=== PATIENT | female | born 2000 | race Hispanic/Latino ===

== ENCOUNTER 2019-05-09 18:56 | Emergency (ER) | payer OTHER ==
[~2019-05-09] VITALS: Ht 160 cm; Wt 57.2 kg
--- OUTSIDE RECORDS SUMMARY | 2019-05-09 18:58 | XMS REPORT ---
Author Author Admin, Hend[place] Organization [facility] Address [address] [place] [address] Phone [phone] Allergies, Adverse Reactions, Alerts Allergy Name Reaction Description Start Date Severity Status Provider No Known Allergies Radhajaskaran Nicoleados CMA OR LPN Conditions or Problems Problem Name Problem Code Onset Date Status Entry Date Provider Comment Standard Description Annotate Epigastric pain 789.06 Active Nirav Quigley MD Abdominal pain, epigastric Dry skin 701.1 Active Nirav Quigley MD Keratoderma, acquired Annual exam V70.0 Active Nirav Quigley MD Routine general medical examination at a health care facility DEPRESSIVE DISORDER, MAJOR, RECURRENT EPISODE, MODERATE Active Jorge Sanchez MD Major depressive disorder, recurrent episode, moderate degree ANXIETY DISORDER, UNSPECIFIED Active More Palomino LPC Anxiety state, unspecified DEPRESSIVE DISORDER, UNSPECIFIED Active More Palomino [employer] Cough ICD-786.2 Inactive Nirav Quigley MD Cough 786.2 Resolved Nirav Quigley MD Cough Medication List Medication Instructions Start Date Stop Date Generic Name NDC Status Provider Patient Instruction VENLAFAXINE HCL ER 75 MG CAP TAKE 1 CAPSULE BY MOUTH EVERY DAY IN THE MORNING VENLAFAXINE HCL 75192719712 Active Jorge Sanchez MD Active ZOLOFT 100 MG ORAL TABLET Take 2 tabs By Mouth Every Morning ZOLOFT 100 MG ORAL TABLET 884195 SERTRALINE HCL Inactive ZOLOFT 100 MG ORAL TABLET Take 2 tabs By Mouth Every Morning SERTRALINE HCL 36416088508 No Longer Active Jorge Sanchez MD Active Vital Signs Date Name Value Unit Range Description blood pressure, diastolic 74 mm[Hg] BP silva blood pressure, systolic 106 mm[Hg] BP sys height E&M 59.5 [in_us] Bdy height pulse rate E&M 81 /min Heart rate respiratory rate E&M 17 /min Resp rate temperature E&M 98.0 [degF] Body temperature weight E&M 149.50 [lb_av] Weight Measured blood pressure, diastolic 78 mm[Hg] BP silva blood pressure, systolic 110 mm[Hg] BP sys height E&M 59.5 [in_us] Bdy height pulse rate E&M 120 /min Heart rate respiratory rate E&M 17 /min Resp rate temperature E&M 98.1 [degF] Body temperature weight E&M 152 [lb_av] Weight Measured blood pressure, diastolic 73 mm[Hg] BP silva blood pressure, systolic 107 mm[Hg] BP sys height E&M 59.5 [in_us] Bdy height pulse rate E&M 78 /min Heart rate weight E&M 152.38 [lb_av] Weight Measured blood pressure, diastolic 73 mm[Hg] BP silva blood pressure, systolic 113 mm[Hg] BP sys height E&M 59.5 [in_us] Bdy height pulse rate E&M 78 /min Heart rate weight E&M 154.38 [lb_av] Weight Measured blood pressure, diastolic 64 mm[Hg] BP silva blood pressure, systolic 100 mm[Hg] BP sys height E&M 59.5 [in_us] Bdy height pulse rate E&M 107 /min Heart rate respiratory rate E&M 18 /min Resp rate temperature E&M 98.0 [degF] Body temperature weight E&M 153.38 [lb_av] Weight Measured Diagnostic Results Date Name Value Unit Range Description Lab Report: CBC With Differential/Platelet, Comp. Metabolic Panel (14), ... - Hematology hematocrit, blood 38.3 % 34.0-46.6 Lab Report: CBC With Differential/Platelet, Comp. Metabolic Panel (14), ... - Chemistry sodium, serum 141 mmol/L 134-144 Lab Report: CBC With Differential/Platelet, Comp. Metabolic Panel (14), ... - Hematology neutrophils as percent of blood leukocytes 58 % Not Estab. basophils as percent of blood leukocytes 0 % Not Estab. Lab Report: CBC With Differential/Platelet, Comp. Metabolic Panel (14), ... - Chemistry very low density lipoproteins 33 mg/dL 5-40 carbon dioxide, venous blood 25 mmol/L 20-29 chloride, serum 102 mmol/L 96-106 triglyceride, serum, fasting 164 mg/dL 0-89 calcium, serum 9.5 mg/dL 8.7-10.2 urea nitrogen, blood 7 mg/dL 6-20 alanine aminotransferase (SGPT), serum 10 U/L 0-32 Lab Report: CBC With Differential/Platelet, Comp. Metabolic Panel (14), ... - Hematology mean corpuscular hemoglobin, RBC 30.5 pg 26.6-33.0 mean corpuscular hemoglobin concentration, RBC 33.2 G/DL % 31.5-35.7 Lab Report: CBC With Differential/Platelet, Comp. Metabolic Panel (14), ... - Chemistry protein, total, serum 7.2 g/dL 6.0-8.5 alkaline phosphatase, serum 83 U/L 43-101 Lab Report: CBC With Differential/Platelet, Comp. Metabolic Panel (14), ... - Hematology erythrocyte (RBC) count 4.16 X10E6/UL 10*6/mm3 3.77-5.28 hemoglobin, blood 12.7 g/dL 11.1-15.9 Lab Report: CBC With Differential/Platelet, Comp. Metabolic Panel (14), ... - Chemistry Absolute Neutrophils 5.0 X10E3/UL 10*3/uL 1.4-7.0 LDL cholesterol, serum 124 mg/dL 0-109 urea nitrogen/creatinine ratio, serum 16 9-23 Lab Report: CBC With Differential/Platelet, Comp. Metabolic Panel (14), ... - Hematology lymphocytes as percent of blood leukocytes 33 % Not Estab. mean corpuscular volume, RBC 92 fL 79-97 Lab Report: CBC With Differential/Platelet, Comp. Metabolic Panel (14), ... - Chemistry HDL cholesterol, serum 40 mg/dL >39 Lab Report: CBC With Differential/Platelet, Comp. Metabolic Panel (14), ... - Genetics/fertility eGFR if 172 mL/min/1.73m2 >59 Lab Report: CBC With Differential/Platelet, Comp. Metabolic Panel (14), ... - Hematology basophil count, absolute 0.0 x10E3/uL 0.0-0.2 monocytes as percent of blood leukocytes 8 % Not Estab. Lab Report: CBC With Differential/Platelet, Comp. Metabolic Panel (14), ... - Chemistry globulin, serum 2.6 1.5-4.5 albumin/globulin ratio, serum 1.8 1.2-2.2 Estimated Glomerular Filtration Rate (calc) 149 mL/min/1.73m2 >59 creatinine, serum 0.43 mg/dL 0.57-1.00 cholesterol, serum 197 mg/dL 685-042 9437/08/14 bilirubin, serum, total <0.2 mg/dL mg/dL 0.0-1.2 Lab Report: CBC With Differential/Platelet, Comp. Metabolic Panel (14), ... - Hematology Eosinophil Absolute Count 0.1 X10E3/UL 10*3/uL 0.0-0.4 eosinophils as percent of blood leukocytes 1 % Not Estab. Lab Report: CBC With Differential/Platelet, Comp. Metabolic Panel (14), ... - Chemistry blood glucose, random 112 mg/dL 65-99 aspartate aminotransferase (SGOT), serum 11 U/L 0-40 Lab Report: CBC With Differential/Platelet, Comp. Metabolic Panel (14), ... - Hematology red blood cell distribution width 13.3 % 12.3-15.4 leukocyte count, blood 8.6 X10E3/UL 10*3/mm3 3.4-10.8 Lab Report: CBC With Differential/Platelet, Comp. Metabolic Panel (14), ... - Chemistry potassium, serum 4.0 mmol/L 3.5-5.2 Lab Report: CBC With Differential/Platelet, Comp. Metabolic Panel (14), ... - Hematology monocyte count, blood, automated 0.7 X10E3/UL 10*3/uL 0.1-0.9 Lab Report: CBC With Differential/Platelet, Comp. Metabolic Panel (14), ... - Chemistry albumin, serum 4.6 g/dL 3.5-5.5 immature granulocytes, percentage of total cells, blood 0 % Not Estab. Lab Report: CBC With Differential/Platelet, Comp. Metabolic Panel (14), ... - Hematology platelet count 287 X10E3/UL 10*3/mm3 730-211 0679/08/14 lymphocyte count, blood, automated 2.8 X10E3/UL 10*3/mm3 0.7-3.1 Encounters Date Encounter Provider Code Facility 14:05:34 CDT Est Patient Exp Problem - 67025 Nirav Quigley MD CPT-[id number] [facility] 14:32:38 CDT Est Patient Exp Problem - 83390 Nirav Quigley MD CPT-80983 [facility] 14:44:33 CDT Est Patient Exp Problem - 83561 Jorge Sanchez MD CPT-65035 [facility] 13:08:26 [employer] Est Patient Detailed - 10558 Jorge Sanchez MD CPT-41615 [facility] 12:26:10 [employer] Est Patient Exp Problem - 97674 Nirav Quigley MD CPT-29376 [facility] 17:58:56 CDT Est Patient Detailed - 18774 Jorge Sanchez MD CPT-00609 [facility] Procedures Code Procedure Name Date Entry Date Standard Description CPT-18421 Psychotherapy 45 (38-52*) min - 73800 (with patient and/or family member) 11:16:47 [employer] CPT-94141 Psychotherapy 45 (38-52*) min - 03672 (with patient and/or family member) 22:29:44 CDT CPT-00102 Psychotherapy 30 (16-37*) min - 13127 (with patient and/or family member) 22:34:32 CDT CPT-12955 Psychotherapy 45 (38-52*) min - 80297 (with patient and/or family member) 07:52:57 CDT CPT-12348 Est Patient Well Exam (18 - 39 Yrs) - 24788 14:21:12 CDT CPT-35427 Psychotherapy 45 (38-52*) min - 64737 (with patient and/or family member) 07:54:25 CDT CPT-10655 Psychotherapy 45 (38-52*) min - 29011 (with patient and/or family member) 15:31:09 CDT CPT-71552 Diagnostic evaluation with medical - 33849 13:04:44 CDT CPT-34851 Diagnostic evaluation (no medical) - 31075 19:56:57 CDT
--- OUTSIDE RECORDS SUMMARY | 2019-05-09 18:59 | XMS REPORT ---
Author Author Admin, [place] Organization Unknown Address Unknown Phone Unavailable PROBLEMS Condition Status Date Provider Notes Epigastric pain active Nirav Quigley Cough completed - Nirav Quigley Dry skin active Nirav Quigley Annual exam active Nirav Quigley DEPRESSIVE DISORDER, MAJOR, RECURRENT EPISODE, MODERATE active Jorge Sanchez DEPRESSIVE DISORDER, UNSPECIFIED active Morekathi Palomino ANXIETY DISORDER, UNSPECIFIED active More Palomino ENCOUNTERS Date Type Provider Location Encounter Diagnosis - Ambulatory Encounter More Palomino [facility] UNK - [facility] - [facility] Jorge Sanchez [facility] UNK - [facility] - [facility] Encounter Nirav Quigley [facility] UNK - Ambulatory Encounter Nirav Aguilera [facility] UNK - Ambulatory Encounter Nirav Quigley [facility] UNK - Ambulatory Encounter Nirav Quigley [facility] UNK - Ambulatory Encounter [facility] Cough[facility] - Ambulatory Encounter Jorge Daniel Patel [place] [facility] UNK - Ambulatory Encounter Jorge [place] Acchanda Cornelius [facility] UNK - Ambulatory Encounter Jorge [place] Sanchez [facility] UNK - Ambulatory Encounter Deja Cornelius [facility] UNK - Ambulatory Encounter Jorge Sanchez [facility] UNK - Ambulatory Encounter MoreEmperatriz Palomino [facility] UNK - Ambulatory Encounter Jorge Sanchez [facility] UNK - Ambulatory Encounter Jorge Daniel Short Adryan [facility] UNK - Ambulatory Encounter More Candelario Morekathi Palomino [facility] UNK - Ambulatory Encounter Jorge [place] Patel [place] [facility] UNK - Ambulatory [facility] - [facility] Encounter Nirav Gutierrez Aguilera [facility] Dry skinCough - Ambulatory Encounter Jorge [place] Sanchez [facility] UNK - Ambulatory Encounter More Candelario Morekatie Palomino [facility] UNK - Ambulatory Encounter Brenda [facility] - [facility]ulatory Encounter More Candelario More Candelario [facility] UNK - Ambulatory Encounter Brenda Nicoleados Jazmin Locke [facility] UNK - Ambulatory Encounter More Candelario Morekathi Palomino [facility] UNK - Ambulatory Encounter Nirav Quigley [facility] UNK - Ambulatory Encounter Nirav PersonLogpaul Gutierrez Aguilera [facility] UNK - Ambulatory Encounter Nirav Quigley [facility] UNK - Ambulatory Encounter Nirav Gutierrez Aguilera [facility] Annual exam - Ambulatory Encounter Jorge Sanchez [facility] UNK - Ambulatory Encounter Jorge Sanchez [facility] UNK - Ambulatory Encounter Jorge Benedict Curtis [facility] UNK - Ambulatory Encounter Antonia Grewal [facility] UNK - Ambulatory Encounter More Candelario Morekathi Palomino [facility] UNK - Ambulatory Encounter Jorge Chavis [facility] UNK - Ambulatory Encounter More Candelario More Candelario [facility] UNK - Ambulatory Encounter Jorge Sanchez [facility] UNK - Ambulatory Encounter Jorge Curtis [facility] DEPRESSIVE DISORDER, MAJOR, RECURRENT EPISODE, MODERATE - Ambulatory Encounter More Candelario Morekathi Hernandezen [facility] ANXIETY DISORDER, UNSPECIFIEDDEPRESSIVE DISORDER, UNSPECIFIED - Ambulatory Encounter Antonia Grewal [facility] Contact Center UNK VITAL SIGNS No Information Available Allergies No Known Allergy Information REASON FOR REFERRAL No Information Available RESULTS Date Observation Value Provider Reference Range Interpretation Location LDL cholesterol, serum 124 mg/dL [facility] 0-109 High " very low density lipoproteins 33 mg/dL [facility] 5-40 " HDL cholesterol, serum 40 mg/dL [facility] >39 " triglyceride, serum, fasting 164 mg/dL [facility] 0-89 High " cholesterol, serum 197 mg/dL [facility] 100-169 High " alanine aminotransferase (SGPT), serum 10 1/L [facility] 0-32 " aspartate aminotransferase (SGOT), serum 11 1/L [facility] 0-40 " alkaline phosphatase, serum 83 1/L [facility] 43-101 " bilirubin, serum, total <0.2 mg/dL [facility] 0.0-1.2 " albumin/globulin ratio, serum 1.8 [facility] 1.2-2.2 " globulin, serum 2.6 [facility] 1.5-4.5 " albumin, serum 4.6 g/dL [facility] 3.5-5.5 " protein, total, serum 7.2 g/dL [facility] 6.0-8.5 " calcium, serum 9.5 mg/dL [facility] 8.7-10.2 " carbon dioxide, venous blood 25 mmol/L [facility] 20-29 " chloride, serum 102 mmol/L [facility] 96-106 " potassium, serum 4.0 mmol/L [facility] 3.5-5.2 " sodium, serum 141 mmol/L [facility] 134-144 " urea nitrogen/creatinine ratio, serum 16 [facility] 9-23 " eGFR if 172 mL/min/((173/100).m2) [facility] >59 " Estimated Glomerular Filtration Rate (calc) 149 mL/min/((173/100).m2) [facility] >59 " creatinine, serum 0.43 mg/dL [facility] 0.57-1.00 Low " urea nitrogen, blood 7 mg/dL [facility] 6-20 " blood glucose, random 112 mg/dL [facility] 65-99 High " immature granulocytes, percentage of total cells, blood 0 % [facility] Not Estab. " basophil count, absolute 0.0 x10E3/uL [facility] 0.0-0.2 " Eosinophil Absolute Count 0.1 X10E3/UL [facility] 0.0-0.4 " monocyte count, blood, automated 0.7 X10E3/UL [facility] 0.1-0.9 " lymphocyte count, blood, automated 2.8 X10E3/UL [facility] 0.7-3.1 " Absolute Neutrophils 5.0 X10E3/UL [facility] 1.4-7.0 " basophils as percent of blood leukocytes 0 % [facility] Not Estab. " eosinophils as percent of blood leukocytes 1 % [facility] Not Estab. " monocytes as percent of blood leukocytes 8 % [facility] Not Estab. " lymphocytes as percent of blood leukocytes 33 % [facility] Not Estab. " neutrophils as percent of blood leukocytes 58 % [facility] Not Estab. " platelet count 287 X10E3/UL [facility] 150-379 " red blood cell distribution width 13.3 % [facility] 12.3-15.4 " mean corpuscular hemoglobin concentration, RBC 33.2 G/DL [facility] 31.5-35.7 " mean corpuscular hemoglobin, RBC 30.5 pg [facility] 26.6-33.0 " mean corpuscular volume, RBC 92 fL [facility] 79-97 " hematocrit, blood 38.3 % [facility] 34.0-46.6 " hemoglobin, blood 12.7 g/dL [facility] 11.1-15.9 " erythrocyte (RBC) count 4.16 X10E6/UL [facility] 3.77-5.28 " leukocyte count, blood 8.6 X10E3/UL [facility] 3.4-10.8 HISTORY OF IMMUNIZATIONS No Information Available HISTORY OF MEDICATION USE Medication Instructions Dates Provider Comments VENLAFAXINE HCL ER 75 MG CAP TAKE 1 CAPSULE BY MOUTH EVERY DAY IN THE MORNING Jorge Sanchez ZOLOFT 100 MG ORAL TABLET Take 2 tabs By Mouth Every Morning - Jorge Sanchez SOCIAL HISTORY Date Observation Value Provider drug use, illicit Never Deborath Aguilera " alcohol use Never Deborath Aguilera " social history E&M Ps are together City: [place] . B (21), F, M GM, who is disabled , and M in the house home schooled; 12th grade - graduated - [employer] Deborath Aguilera " social history reviewed E&M reviewed today Deborath Aguilera " is there any chance that you could be ? No Deborath Aguilera " assessment of health literacy ([facility] 2014 Standards, 3C10) Adequate Deborath Aguilera " passive cigarette smoke exposure No Deborath Aguilera " smoking status never smoker Deborath Aguilera " Exercise Program Referral T Deborath Aguilera " Weight Management Counseling Provided T Deborath Aguilera " Nutrition intervention T Deborath Aguilera Exercise Program Referral T Deborath Aguilera " Weight Management Counseling Provided T Deborath Aguilera " Nutrition intervention T Deborath Aguilera " drug use, illicit Never Deborath Aguilera " alcohol use Never Deborath Aguilera " social history E&M Ps are together City: [place] . B (21), F, M GM, who is disabled , and M in the house home schooled; 12th grade - graduated - [employer] Deborath Aguilera " social history reviewed E&M reviewed today Deborath Aguilera " assessment of health literacy ([facility] 2014 Standards, 3C10) Adequate Deborath Aguilera " is there any chance that you could be ? No Deborath Aguilera " passive cigarette smoke exposure No Deborath Aguilera " smoking status never smoker Radhaorath Aguilera smoking status never smoker Jorge Sanchez smoking status never smoker Jorge Sanchez " Suicide Addendum Question 11, unusual risks No Jorge Sanchez " Suicide Addendum Question 10, use of alcohol or non-prescription drugs No Jorge Sanchez " Suicide Addendum Question 8, people who care Yes Jorge Sanchez " Suicide Addendum Question 6, intend to act No Jorge Sanchez " Suicide Addendum Question 4, plan for suicide No Jorge Sanchez " Suicide Addendum Question 3, try to resolve or see other solution Yes Jorge Sanchez " Suicide Addendum Question 2, feeling hopeless Yes Jorge Sanchez " Suicide Addendum Question 1, thoughts of harming yourself Yes Jorge Sanchez Exercise Program Referral T Radhajaskaran Aguilera " Weight Management Counseling Provided T Radhajermaine Aguilera " Nutrition intervention T Deborath Aguilera " drug use, illicit Never Deborath Aguilera " alcohol use Never Deborath Aguilera " social history E&M Ps are together City: [place] . B (21), F, M GM, who is disabled , and M in the house home schooled; 12th grade - graduated - [employer] Debjermaineth Aguilera " social history reviewed E&M reviewed today Deborath Aguilera " assessment of health literacy ([facility] 2014 Standards, 3C10) Adequate Deborath Aguilera " passive cigarette smoke exposure No Deborath Aguilera " smoking status never smoker Deborath Aguilera is there any chance that you could be ? No Deborath Aguilera " passive cigarette smoke exposure No Deborath Aguilera " assessment of health literacy ([facility] 2014 Standards, 3C10) Adequate Deborath Aguilera " smoking status never smoker Deborath Aguilera " drug use, illicit Never Deborath Aguilera " alcohol use Never Deborath Aguilera " social history E&M Ps are together City: [place] . B (21), F, M GM, who is disabled , and M in the house home schooled; 12th grade - graduated - [employer] Lilyricky Aguilera " social history reviewed E&M reviewed today Deborath Aguilera " smoking status never smoker Jorge Craveno " social history E&M Ps are together City: [place] . B (21), F, M GM, who is disabled , and M in the house home schooled; 12th grade - graduated - [employer] Jorge Sanchez " social history reviewed E&M reviewed today Jorge Sanchez drug use, illicit Never Jorge Craveno " alcohol use Never Jorge Berno " smoking status never smoker Jorge Berno " social history reviewed E&M reviewed today Jorge Berno " social history E&M Ps are together City: [place] . B (21), F, M GM, who is disabled , and M in the house home schooled; 12th grade - graduated - [employer] Jorge Sanchez " home/family situation, assessment B (21), F, M GM, who is disabled , and M in the house Jorge Sanchez social history reviewed E&M reviewed today More Palomino " social history E&M Ps are together City: [place] . B (), F, GM, and M in the house home schooled; 12th grade More Palomino " family support Ps are together More Palomino " home/family situation, assessment B (21), F, GM, and M in the house More Candelario FUNCTIONAL STATUS No Information Available MENTAL STATUS Date Observation Value Provider mental status assessment, judgment fair More Candelario " insight (mental status exam) fair, limited More Candelario " Mental Status Exam: intelligence oriented to person, oriented to place, oriented to time, oriented to reality, not sure of the date More Candelario " hallucinations none More Candelario " thought content (mental status exam) (E&M) lucid More Candelario " mental status assessment, process goal-directed, logical More Candelario " mental status assessment, sensorium alert, clear More Candelario " affect (mental status exam) brighter affect , congruent More Candelario " mood (mental status exam) pleasant More Candelario " mental status assessment, speech activity normal flow, normal pace, normal pressure, normal rate, normal tone, normal volume, spontaneous More Candelario " mental status assessment, motor activity normal gait, normal posture, fidgety More Candelario " behavior (mental status exam) appropriate, cooperative, responsive, eye contact varied - looks up at drawing More Candelario " mental appearance (mental status exam) adequate hygiene, appropriate dress More Candelario assessment of judgment and insight E&M intact Nirav Quigley " mental status examination: orientation E&M oriented to time, place, and person Nirav Quigley " assessment of mood and affect E&M no depression, anxiety, or agitation Nirav Quigley " Generalized Anxiety Disorder Questionnaire - Question 2 0 Willy " Generalized Anxiety Disorder Questionnaire - Question 1 0 Brenda Aguilera assessment of mood and affect E&M no depression, anxiety, or agitation Nirav Quigley " assessment of judgment and insight E&M intact Nirav Quigley " mental status examination: orientation E&M oriented to time, place, and person Nirav Quigley " Generalized Anxiety Disorder Questionnaire - Question 2 0 jermaine Willy " Generalized Anxiety Disorder Questionnaire - Question 1 0 Brenda Aguilera mental status assessment, judgment fair Jorge Berno " insight (mental status exam) fair Jorge Berno " Mental Status Exam: intelligence oriented to person, oriented to place, oriented to time, oriented to reality Jorge Berno " hallucinations none Jorge Berno " thought content (mental status exam) (E&M) lucid Jorge Berno " mental status assessment, process goal-directed, logical Jorge Berno " mental status assessment, sensorium alert, clear Jorge Berno " affect (mental status exam) congruent, constricted Jorge Berno " mental status assessment, speech activity normal flow, normal pace, normal pressure, normal rate, normal tone, normal volume, spontaneous Jorge Berno " mental status assessment, motor activity normal gait, normal posture, fidgety Jorge Berno " behavior (mental status exam) appropriate, cooperative, responsive Jorge Berno " mental appearance (mental status exam) adequate hygiene, appropriate dress Jorge Sanchez mental status assessment, judgment fair Jorge Berno " insight (mental status exam) fair Jorge Berno " Mental Status Exam: intelligence oriented to person, oriented to place, oriented to time, oriented to reality Jorge Berno " hallucinations none Jorge Berno " thought content (mental status exam) (E&M) lucid Jorge Berno " mental status assessment, process goal-directed, logical Jorge Berno " mental status assessment, sensorium alert, clear Jorge Berno " affect (mental status exam) congruent, constricted Jorge Berno " mental status assessment, speech activity normal flow, normal pace, normal pressure, normal rate, normal tone, normal volume, spontaneous Jorge Berno " mental status assessment, motor activity normal gait, normal posture, fidgety Jorge Berno " behavior (mental status exam) appropriate, cooperative, responsive Jorge Berno " mental appearance (mental status exam) adequate hygiene, appropriate dress Jorge Sanchez mental status assessment, judgment fair More Candelario " insight (mental status exam) fair More Candelario " Mental Status Exam: intelligence oriented to person, oriented to place, oriented to time, oriented to reality More Candelario " hallucinations none More Candelario " thought content (mental status exam) (E&M) lucid More Candelario " mental status assessment, process goal-directed, logical More Candelario " mental status assessment, sensorium alert, clear More Candelario " affect (mental status exam) congruent, constricted More Candelario " mood (mental status exam) depressed, frustrated More Candelario " mental status assessment, speech activity normal flow, normal pace, normal pressure, normal rate, normal tone, normal volume, spontaneous More Candelario " mental status assessment, motor activity normal gait, normal posture More Candelario " behavior (mental status exam) appropriate, cooperative, responsive More Candelario " mental appearance (mental status exam) adequate hygiene, appropriate dress More Candelario assessment of judgment and insight E&M intact Nirav Quigley " mental status examination: orientation E&M oriented to time, place, and person Nirav Quigley " assessment of mood and affect E&M no depression, anxiety, or agitation Nirav Quigley mental status assessment, judgment fair More Candelario " insight (mental status exam) fair More Candelario " Mental Status Exam: intelligence oriented to person, oriented to place, oriented to time, oriented to reality More Candelario " hallucinations none More Candelario " thought content (mental status exam) (E&M) lucid More Candelario " mental status assessment, process goal-directed, logical More Candelario " mental status assessment, sensorium alert, clear More Candelario " affect (mental status exam) congruent, constricted More Candelario " mood (mental status exam) frustrated More Candelario " mental status assessment, speech activity normal flow, normal pace, normal pressure, normal rate, normal tone, normal volume, spontaneous More Candelario " mental status assessment, motor activity normal gait, normal posture More Candelario " behavior (mental status exam) appropriate, cooperative, responsive More Candelario " mental appearance (mental status exam) adequate hygiene, appropriate dress More Candelario mental status assessment, judgment fair More Candelario " insight (mental status exam) fair More Candelario " Mental Status Exam: intelligence oriented to person, oriented to place, oriented to time, oriented to reality More Candelario " hallucinations none More Candelario " thought content (mental status exam) (E&M) lucid More Candelario " mental status assessment, process goal-directed, logical More Candelario " mental status assessment, sensorium alert, clear More Candelario " affect (mental status exam) congruent, constricted More Candelario " mood (mental status exam) anxious, pleasant More Candelario " mental status assessment, speech activity normal flow, normal pace, normal pressure, normal rate, normal tone, normal volume, spontaneous More Candelario " mental status assessment, motor activity normal gait, normal posture More Candelario " behavior (mental status exam) appropriate, cooperative, responsive More Candelario " mental appearance (mental status exam) adequate hygiene, appropriate dress More Candelario mental status assessment, judgment fair More Candelario " insight (mental status exam) fair More Candelario " Mental Status Exam: intelligence oriented to person, oriented to place, oriented to time, oriented to reality More Candelario " hallucinations none More Candelario " thought content (mental status exam) (E&M) lucid More Candelario " mental status assessment, process goal-directed, logical More Candelario " mental status assessment, sensorium alert, clear More Candelario " affect (mental status exam) congruent, constricted More Candelario " mood (mental status exam) depressed More Candelario " mental status assessment, speech activity normal flow, normal pace, normal pressure, normal rate, normal tone, normal volume, spontaneous More Candelario " mental status assessment, motor activity normal gait, normal posture More Candelario " behavior (mental status exam) appropriate, cooperative, responsive More Candelario " mental appearance (mental status exam) adequate hygiene, appropriate dress More Candelario assessment of judgment and insight E&M intact Nirav Quigley " mental status examination: orientation E&M oriented to time, place, and person Nirav Quigley " assessment of mood and affect E&M sad, anxious Nirav Quigley " Generalized Anxiety Disorder Questionnaire - Question 2 0 jermaine Willy " Generalized Anxiety Disorder Questionnaire - Question 1 0 Brenda Aguilera mental status assessment, judgment fair Jorge Sanchez " insight (mental status exam) fair Jorge Berno " Mental Status Exam: intelligence oriented to person, oriented to place, oriented to time, oriented to reality Jorge Daniel " hallucinations none Jorge Berno " thought content (mental status exam) (E&M) lucid Jorge Berno " mental status assessment, process goal-directed, logical Jorge Berno " mental status assessment, sensorium alert, clear Jorge Berno " affect (mental status exam) congruent, constricted Jorge Berno " mental status assessment, speech activity normal flow, normal pace, normal pressure, normal rate, normal tone, normal volume, spontaneous Jorge Berno " mental status assessment, motor activity normal gait, normal posture Jorge [place] " behavior (mental status exam) appropriate, cooperative, responsive Jorge Berno " mental appearance (mental status exam) adequate hygiene, appropriate dress Jorge Sanchez mental status assessment, judgment fair More Candelario " insight (mental status exam) fair More Candelario " Mental Status Exam: intelligence oriented to person, oriented to place, oriented to time, oriented to situation, oriented to reality More Candelario " hallucinations none More Candelario " thought content (mental status exam) (E&M) lucid More Candelario " mental status assessment, process goal-directed, logical More Candelario " mental status assessment, sensorium alert, clear More Candelario " affect (mental status exam) congruent More Candelario " mood (mental status exam) depressed Moer Candelario " mental status assessment, speech activity normal flow, normal pace, normal pressure, normal rate, normal tone, normal volume, spontaneous More Candelario " mental status assessment, motor activity normal gait, normal posture More Candelario " behavior (mental status exam) appropriate, candid, cooperative, good eye contact, polite, responsive More Candelario " mental appearance (mental status exam) adequate hygiene, appropriate dress More Hernandezen mental status assessment, judgment fair More Candelario " insight (mental status exam) fair More Candelario " Mental Status Exam: intelligence oriented to person, oriented to place, oriented to reality More Candelario " hallucinations none More Candelario " thought content (mental status exam) (E&M) lucid More Candelario " mental status assessment, process goal-directed, logical More Candelario " mental status assessment, sensorium alert, clear More Candelario " affect (mental status exam) congruent More Candelario " mood (mental status exam) depressed, pleasant More Candelario " mental status assessment, speech activity normal flow, normal pace, normal pressure, normal rate, normal tone, normal volume, spontaneous More Candelario " mental status assessment, motor activity normal gait, normal posture More Candelario " behavior (mental status exam) appropriate, candid, cooperative, good eye contact, polite, responsive More Candelario " mental appearance (mental status exam) adequate hygiene, appropriate dress More Candelario mental status assessment, judgment fair Jorge Berno " insight (mental status exam) fair Jorge Berno " Mental Status Exam: intelligence oriented to person, oriented to place, oriented to reality Jorge Berno " hallucinations none Jorge Berno " thought content (mental status exam) (E&M) lucid Jorge Berno " mental status assessment, process goal-directed, logical Jorge Berno " mental status assessment, sensorium alert, clear Jorge Berno " affect (mental status exam) congruent Jorge Berno " mental status assessment, speech activity normal flow, normal pace, normal pressure, normal rate, normal tone, normal volume, spontaneous Jorge Berno " mental status assessment, motor activity normal gait, normal posture Jorge Berno " behavior (mental status exam) appropriate, cooperative, good eye contact, responsive, passive Jorge Berno " mental appearance (mental status exam) adequate hygiene, appropriate dress Jorge Berno mental status assessment, judgment fair More Candelario " insight (mental status exam) fair More Candelario " Mental Status Exam: intelligence adequate fund of information, intact memory processes, oriented to person, oriented to place, oriented to time, oriented to situation, oriented to reality More Candelario " hallucinations none More Candelario " thought content (mental status exam) (E&M) lucid More Candelario " mental status assessment, process goal-directed, logical More Candelario " mental status assessment, sensorium alert, attentive, clear More Candelario " affect (mental status exam) congruent More Candelario " mood (mental status exam) depressed More Candelario " mental status assessment, speech activity normal flow, normal pace, normal pressure, normal rate, normal tone, normal volume, spontaneous More Candelario " mental status assessment, motor activity normal gait, normal posture More Candelario " behavior (mental status exam) appropriate, candid, cooperative, good eye contact, polite, responsive, passive More Candelario " mental appearance (mental status exam) adequate hygiene, appropriate dress, looks like stated age, neat More Candelario " anxiety worry a lot, restlessness, irritability, panic attacks More Candelario MEDICAL EQUIPMENT No Information Available FAMILY HISTORY No Information Available INSURANCE PROVIDERS Payer name Policy type / Coverage type C[id number] ADVANCE DIRECTIVES No Information Available TREATMENT PLAN Date Name Helicobacter Pylori Urea Breath Test Urinalysis, Routine Lipid Panel Comp. Metabolic Panel (14) CBC With Differential/Platelet - Psychotherapy 45 (38-52*) min - 93897 (with patient and/or family member) Est Patient Exp Problem - 57580 Est Patient Exp Problem - 84801 Est Patient Exp Problem - 46722 Est Patient Detailed - 68580 Psychotherapy 45 (38-52*) min - 30317 (with patient and/or family member) Est Patient Exp Problem - 18902 Psychotherapy 45 (38-52*) min - 28868 (with patient and/or family member) Psychotherapy 30 (16-37*) min - 68042 (with patient and/or family member) Psychotherapy 45 (38-52*) min - 69866 (with patient and/or family member) Est Patient Well Exam (18 - 39 Yrs) - 09012 Est Patient Detailed - 21478 Psychotherapy 45 (38-52*) min - 67152 (with patient and/or family member) Psychotherapy 45 (38-52*) min - 79362 (with patient and/or family member) Diagnostic evaluation with medical - 90184 Diagnostic evaluation (no medical) - 29509 HISTORY OF PROCEDURES Procedure Date Procedure Name Provider Procedure Notes Status Psychotherapy 45 (38-52*) min - 78441 (with patient and/or family member) More Palomino completed Psychotherapy 45 (38-52*) min - 06080 (with patient and/or family member) More Palomino completed Psychotherapy 45 (38-52*) min - 17809 (with patient and/or family member) More Palomino completed Psychotherapy 30 (16-37*) min - 99852 (with patient and/or family member) More Palomino completed Psychotherapy 45 (38-52*) min - 60112 (with patient and/or family member) More Palomino completed Psychotherapy 45 (38-52*) min - 12558 (with patient and/or family member) More Palomino completed Psychotherapy 45 (38-52*) min - 05429 (with patient and/or family member) More Palomino completed Diagnostic evaluation with medical - 52072 Jorge Sanchez completed Diagnostic evaluation (no medical) - 50878 More Palomino completed GOALS No Information Available HEALTH CONCERNS No Information Available
--- OUTSIDE RECORDS SUMMARY | 2019-05-09 18:59 | XMS REPORT ---
[facility] Address Unknown Phone Unavailable Care Team Providers Care General Labor Name Role Phone Lydia GARVEY Unavailable Unavailable Problems This patient has no known problems. Allergies, Adverse Reactions, Alerts This patient has no known allergies or adverse reactions. Medications This patient has no known medications. Encounters Start Date/Time End Date/Time Encounter Type Admission Type Attending [facility] Facility Care Department Encounter ID 2017-07-25 00:00:00 2017-07-25 00:00:00 Outpatient [facility] [id number] 2017-06-13 10:57:53 2017-06-13 10:57:53 Outpatient [facility] [id number] 2017-06-06 00:00:00 2017-06-06 00:00:00 Outpatient [facility] [id number] 2017-05-16 15:26:10 2017-05-16 15:26:10 Outpatient [facility] [id number] 2017-05-12 00:00:00 2017-05-12 00:00:00 Outpatient [facility] [id number] 2017-05-12 00:00:00 2017-05-12 00:00:00 Outpatient [facility] [id number] 2017-05-02 00:00:00 2017-05-02 00:00:00 Outpatient [facility] [id number] 2017-04-25 15:50:12 2017-04-25 15:50:12 Outpatient [facility] [id number] 2017-04-25 00:00:00 2017-04-25 00:00:00 Outpatient [facility] [id number] 2017-04-12 15:36:11 2017-04-12 15:36:11 Outpatient [facility] [id number] 2017-04-07 00:00:00 2017-04-07 00:00:00 Outpatient [facility] [id number] 2017-03-31 00:00:00 2017-03-31 00:00:00 Outpatient [facility] [id number] 2017-02-22 14:14:33 2017-02-22 14:14:33 Outpatient [facility] [id number] 2015-11-04 15:30:28 2015-11-04 15:30:28 Outpatient [facility] [id number] Results Test Description Test Time Test Comments Text Results Atomic Results Result Comments CT ABDOMEN/PELVIS W 2019-04-02 09:53:00 [place] [address] Patient Name: HA TREJO MR #: [id number] : 2000 Age/Sex: 18/F Req #: [id number] Adm Physician: Ordered by: FRANCISCO KAYE DO Report #: [id number] Location: ER Room/Bed: Procedure: [id number] CT/CT ABDOMEN/PELVIS W Exam Date: 04/02/19 Exam Time: 919 REPORT STATUS: Signed EXAM: CT Abdomen and Pelvis WITH intravenous contrast INDICATION: Abdominal pain COMPARISON: None. TECHNIQUE: Abdomen and pelvis were scanned utilizing a multidetector helical scanner from the lung base to the pubic symphysis after administration of IV contrast. Coronal and sagittal reformations were obtained. Routine protocol was performed. Scan was performed during portal venous phase. IV CONTRAST: 100mL of Isovue 370 ORAL CONTRAST: Water RADIATION DOSE: Total DLP: 210.8 mGy*cm Dose modulation, iterative reconstruction, and/or weight based adjustment of the mA/kV was utilized to reduce the radiation dose to as low as reasonably achievable. FINDINGS: LOWER THORAX: Normal. HEPATOBILIARY: Diffuse hepatic steatosis. No focal liver lesion. No biliary ductal dilation. Cholelithiasis without CT evidence of cholecystitis. SPLEEN: No splenomegaly. PANCREAS: No focal masses or ductal dilatation. ADRENALS: No adrenal nodules. KIDNEYS/URETERS: No hydronephrosis, stones, or solid mass lesions. PELVIC ORGANS/BLADDER: Retroverted uterus. Bilateral physiologic adnexal cystic lesions. PERITONEUM / RETROPERITONEUM: No free air or fluid. LYMPH NODES: No lymphadenopathy. VESSELS: Unremarkable. GI TRACT: No abnormal bowel thickening. No bowel obstruction. Normal appendix. BONES AND SOFT TISSUES: Unremarkable. IMPRESSION: Cholelithiasis without CT evidence of cholecystitis. Diffuse hepatic steatosis. Normal appendix. Signed by: Lisandra Cruz MD on 04/02/2019 9:58 AM Dictated By: LISANDRA CRUZ MD 7 Transcribed By: COLTON on 04/02/19957 COPY TO: FRANCISCO KAYE DO
[2019-05-09] MEDS ORDERED: ONDANSETRON HCL INJ 2MG/ML 2ML 2 MG/ML VIAL IV STA (19:31)
[2019-05-09] MEDS ORDERED: PANTOPRAZOLE 40 MG 10ML VIAL IV STA (19:31)
[2019-05-09] MEDS ORDERED: DICYCLOMINE HCL 20 MG/2 ML VIAL IM ONE (19:45)
[2019-05-09 19:57] LABS: BASOPHILS % 0.5 % (0.0-1.0); EOSINOPHILS % 0.1 % (0.0-6.0); HEMATOCRIT 37.3 % (34.2-44.1); HEMOGLOBIN 12.4 g/dL (12.0-16.0); LYMPHOCYTES # (AUTO) 1.1 (1.0-3.2); LYMPHOCYTES % 14.8 % (18.0-39.1); MEAN CORPUSCULAR HEMOGLOBIN 30.7 pg (28-32); MEAN CORPUSCULAR HGB CONC 33.2 g/dL (31-35); MEAN CORPUSCULAR VOLUME 92.3 fL (81-99); MONOCYTES # (AUTO) 0.5 (0.2-0.8); MONOCYTES % 6.1 % (4.4-11.3); NEUTROPHILS # (AUTO) 5.8 (2.1-6.9); NEUTROPHILS % 78.2 % (38.7-80.0); PLATELET COUNT 244 x10e3/uL (140-360); RED BLOOD COUNT 4.04 x10e6/uL (3.6-5.1); RED CELL DISTRIBUTION WIDTH 12.3 % (11.7-14.4)
[2019-05-09 20:16] LABS: ALANINE AMINOTRANSFERASE 482 IU/L (0-55); ALBUMIN 4.3 g/dL (3.5-5.0); ALBUMIN/GLOBULIN RATIO 1.4 (0.8-2.0); ALKALINE PHOSPHATASE 174 IU/L (40-150); AMYLASE 36 U/L (25-125); ANION GAP 11.5 mmol/L (8-16); BLOOD UREA NITROGEN 7 mg/dL (7-26); BUN/CREATININE RATIO 11 (6-25); CALCIUM 9.1 mg/dL (8.4-10.2); CARBON DIOXIDE 25 mmol/L (22-29); CHLORIDE 105 mmol/L (98-107); CREATININE, SERUM 0.66 mg/dL (0.57-1.11); EST GLOMERULAR FILTRATION RATE > 60 ML/MIN (60-); GLUCOSE 118 mg/dL (74-118); LIPASE 23 U/L (8-78); POTASSIUM 3.5 mmol/L (3.5-5.1); SODIUM 138 mmol/L (136-145)
[2019-05-09 20:20] LABS: BILIRUBIN,URINE 1+ (NEGATIVE); CLARITY,URINE SL CLOUDY (CLEAR); COLOR,URINE STRAW (YELLOW); KETONES,URINE 1+ (NEGATIVE); LEUKOCYTE ESTERASE ,URINE TRACE (NEGATIVE); NITRITE,URINE NEGATIVE (NEGATIVE); PREGNANCY TEST, URINE NEGATIVE (NEGATIVE); PROTEIN,URINE DIPSTICK NEGATIVE (NEGATIVE); URINE UROBILINOGEN 8 mg/dL (0.2 - 1)
[2019-05-09 20:31] LABS: BACTERIA,URINE MANY /HPF; EPITHELIAL CELLS,URINE FEW /LPF; WBC,URINE (MAN) 0-5 /HPF (0-5)
[2019-05-09] MEDS ORDERED: MORPHINE SULFATE 2 MG/ML SYR 1ML IV STA (21:54)
--- NOTE | 2019-05-09 22:38 | Diagnostic Imaging Report ---
EXAM: Right Upper Quadrant Ultrasound with Doppler INDICATION: Right upper quadrant pain COMPARISON: Abdominal CT 04/02/2019 TECHNIQUE: Transverse and longitudinal images of the right upper abdomen were obtained. Grayscale, color Doppler and spectral waveform analysis of the hepatic vasculature and splenic vein were performed. FINDINGS: Liver: Size: 13.5 cm in the right midclavicular line, normal Appearance: Normal echogenicity, smooth contour Mass: No focal masses Gallbladder: Stones/Sludge: Multiple layering gallstones. Wall: ... Not thickened Appearance: No pericholecystic fluid or hydrops. Sonographic Foley's Sign: Negative Bile Ducts: Intrahepatic Ducts: No dilatation Extrahepatic Ducts: Common bile duct appears slightly prominent but measures 0.3 cm in diameter Pancreas: Visualized portions of the pancreatic head, neck and proximal body are normal. Right Kidney: Size: 9.1 cm Echogenicity: Normal Parenchymal thickness: Normal Collecting system: No hydronephrosis Stones: None Cyst/Mass: None Vessels: Main Portal Vein: Diameter: normal. Normal flow direction. Aorta: Visualized portions are normal Inferior Vena Cava: Visualized portions are normal Free Fluid: No ascites or pleural effusion IMPRESSION: Cholelithiasis. Low suspicion for acute obstructive cholecystitis. Slightly distended common bile duct. Correlate for cholestasis. Signed by: Dony Osuna DO on 05/09/2019 10:35 PM
[2019-05-09] MEDS ORDERED: PIPER-TAZ 3.375 GM 50 ML IV ONE (23:15)
== END 2019-05-10 01:11 | disposition other institution (70) ==
LOC: ER 18:56
DX: R10.11 Right upper quadrant pain (principal); R11.0 Nausea; K80.21 Calculus of gallbladder without cholecystitis with obstruction
CPT/HCPCS: 36415; 76705; 80053; 81001; 81025; 82150; 83690; 85025; 99284; J0500; J2270; J2405; J2543